=== PATIENT | male | born 1955 | race Asian ===

== ENCOUNTER 2017-10-07 03:26 | Inpatient (IN) | payer BC ==
[~2017-10-07] VITALS: Ht 172.7 cm; Wt 59.0 kg
[2017-10-07 04:26] LABS: Basophils # (auto) 0.1 uL; Eosinophils # (auto) 0.2 uL; Eosinophils % (auto) 4.1 % (0.0-7.0); Hematocrit 42.4 % (41.0-53.0); Hemoglobin 14.4 g/dL (13.5-17.5); Lymphocytes # (auto) 2.6 uL; Lymphocytes % (auto) 46.4 % (10.0-50.0); Mean Corpuscular Hemoglobin 30.3 pg (28.0-32.0); Mean Corpuscular Hgb Conc. 33.9 g/dL (32.0-36.0); Mean Corpuscular Volume 89.3 fL (80.0-100.0); Monocytes # (auto) 0.6 uL; Neutrophils # (auto) 2.1 uL; Neutrophils % (auto) 38.5 % (37.0-80.0); Platelet Count (auto) 245 10^3/uL (140-450); Red Blood Cells 4.75 10^6/uL (4.5-5.90); Red Cell Distribution Width 13.7 % (11.8-14.3); White Blood Cell 5.5 10^3/uL (4.4-10.8)
[2017-10-07 04:37] LABS: Alanine Aminotransferase 24 U/L (16-61); Albumin 3.8 g/dL (3.4-5.0); Alkaline Phosphatase 59 U/L (45-117); Anion Gap 8 (5-15); Aspartate Aminotransferase 17 U/L (15-37); BUN/Creatinine Ratio 18.2; Bilirubin, Total 0.4 mg/dL (0.2-1.0); Blood Urea Nitrogen 18 mg/dL (7-18); Calcium 8.6 mg/dL (8.5-10.1); Carbon Dioxide 25 mmol/L (21-32); Chloride 108 mmol/L (98-107); GFR African American 99 mL/min; GFR Non-African American 82 mL/min; Glucose 135 mg/dL (74-106); Potassium 3.4 mmol/L (3.5-5.1); Sodium 141 mmol/L (136-145); Total Protein 7.5 g/dL (6.4-8.2)
[2017-10-07] MEDS ORDERED: LORazepam 0.5 MG TAB PO PRN (08:15)
[2017-10-07] MEDS ORDERED: HYDROcodone-ACET 5/325MG TAB PO PRN (08:15)
[2017-10-07] MEDS ORDERED: NITROGLYCERIN 0.4 MG SL TAB SL PRN (08:15)
[2017-10-07] MEDS ORDERED: MORPHINE SULFATE 8mg/ml INJ SDV IV PRN ×2 (08:15)
[2017-10-07] MEDS ORDERED: PROMETHAZINE HCL 25 MG/ML 1ML IV PRN (08:15)
[2017-10-07] MEDS ORDERED: TEMAZEPAM 15 MG CAP PO PRN (08:15)
[2017-10-07] MEDS ORDERED: LACTULOSE 20Gm/30ML SOLN PO PRN (08:15)
[2017-10-07] MEDS ORDERED: ACETAMINOPHEN 500 MG TAB PO PRN (08:15)
[2017-10-07] MEDS ORDERED: ALBUTEROL SULF 2.5 MG/0.5ML(0.5%) NEB SOLN NEB PRN (08:15)
[2017-10-07] MEDS ORDERED: DOXYCYCLINE HYC 100MG/250ML 250 ML IV SCH (08:15)
[2017-10-07 09:12] LABS: Folate (Folic Acid) 15.04 ng/mL (5.38-24)
[2017-10-07 09:34] LABS: Alcohol, Urine < 3.0 mg/dL (0-5); Amphetamine Screen, Urine NEGATIVE (NEGATIVE); Barbiturate Scree,Urine NEGATIVE (NEGATIVE); Benzodiazephine Screen, Urine NEGATIVE (NEGATIVE); Cannabinoid Screen, Urine NEGATIVE (NEGATIVE); Cocaine Screen, Urine NEGATIVE (NEGATIVE); Opiate Scree,Urine NEGATIVE (NEGATIVE); Phencyclidine Screen, Urine NEGATIVE (NEGATIVE)
[2017-10-07] MEDS: SODIUM CHLORIDE 0.9% 1,000 ML IV SCH ×2 (09:38→20:43)
[2017-10-07] MEDS: ENOXAPARIN SOD 40 MG/0.4 ML SYRINGE SC SCH (09:55)
[2017-10-07] MEDS: ASPirin 81 mg TAB PO SCH (09:55)
[2017-10-07 10:15] LABS: Urine Bacteria NONE SEEN /hpf (None Seen); Urine Blood Negative /uL (Negative); Urine Hyaline Cast FEW /lpf (0 - 2); Urine Specific Gravity 1.014 (1.001-1.035); Urine WBC 1 /hpf (0 - 3)
[2017-10-07] MEDS ORDERED: POTASSIUM CHL 20 Meq TABLET PO ONE (10:30)
[2017-10-07] MEDS: ALBUTEROL SULF 2.5 MG/0.5ML(0.5%) NEB SOLN NEB SCH ×2 (13:20→19:51)
[2017-10-07] MEDS ORDERED: MULTTAB99 PO (16:45)
[2017-10-07] MEDS ORDERED: CALC667C PO (16:45)
[2017-10-07] MEDS ORDERED: LOVA40TA72 PO (16:45)
[2017-10-07] MEDS ORDERED: CHOL20007 PO (16:45)
[2017-10-07 16:47] VITALS: BP_SYST 133; BP_SYST 145; BP_DIAS 70; BP_DIAS 72
[2017-10-07] MEDS ORDERED: GENTAMICIN OPTH sol 0.3% 5ml RIGHTEYE ONE (19:30)
[2017-10-07 20:30] VITALS: BP 142/82
[2017-10-07 21:33] VITALS: BP 142/82
[2017-10-07] MEDS: GENTAMICIN OPTH sol 0.3% 5ml RIGHTEYE SCH (21:45)
[2017-10-08] MEDS: ALBUTEROL SULF 2.5 MG/0.5ML(0.5%) NEB SOLN NEB SCH ×3 (01:02→11:09)
[2017-10-08] MEDS: GENTAMICIN OPTH sol 0.3% 5ml RIGHTEYE SCH ×3 (02:25→10:34)
[2017-10-08 03:08] VITALS: BP 142/82
[2017-10-08 04:58] VITALS: BP 123/73
[2017-10-08 06:07] LABS: Cholesterol 166 mg/dL (< 200); HDL Cholesterol 46 mg/dL (40-59); LDL Cholesterol 103 mg/dL (< 100); Triglycerides 161 mg/dL (< 150)
[2017-10-08 08:00] VITALS: BP 125/77
[2017-10-08] MEDS: ENOXAPARIN SOD 40 MG/0.4 ML SYRINGE SC SCH (10:34)
[2017-10-08] MEDS: ASPirin 81 mg TAB PO SCH (10:34)
[2017-10-08 13:00] VITALS: BP 141/88
[2017-10-08 15:41] VITALS: BP 141/88
== END 2017-10-08 16:15 | disposition home or self-care (01) | DRG 948 ==
LOC: ER 03:26 → TELE 03:27 → TELE-WESTW 14:07
PROVIDERS: ADMIT Internal Medicine; ATTEND Internal Medicine
DX: R53.1 Weakness (principal); B34.9 Viral infection, unspecified; E78.00 Pure hypercholesterolemia, unspecified; E78.5 Hyperlipidemia, unspecified; E87.6 Hypokalemia; K59.00 Constipation, unspecified; F41.9 Anxiety disorder, unspecified; G47.00 Insomnia, unspecified; R06.02 Shortness of breath; G47.10 Hypersomnia, unspecified; R00.1 Bradycardia, unspecified; Z87.891 Personal history of nicotine dependence; Z82.3 Family history of stroke; Z79.899 Other long term (current) drug therapy
CPT/HCPCS: 36415; 71045; 80053; 80061; 80307; 81001; 82550; 82607; 82746; 83880; 84443; 84484; 85025; 85379; 85652; 86141; 87804; 87807; 93005; 93306; 94640; 96360; J3490

== ENCOUNTER 2019-06-17 23:41 | Emergency (ER) | payer BC ==
[~2019-06-17] VITALS: Ht 180.3 cm; Wt 68.0 kg
[~2019-06-17 23:41] MED LIST: CALC667C PO; CHOL20007 PO; LOVA40TA72 PO; MULTTAB99 PO
[2019-06-17 23:58] LABS: Basophils # (auto) 0 uL; Basophils % (auto) 0.8 % (0.0-2.0); Eosinophils # (auto) 0.1 uL; Eosinophils % (auto) 2.3 % (0.0-7.0); Hematocrit 41.3 % (41.0-53.0); Hemoglobin 14.1 g/dL (13.5-17.5); Lymphocytes # (auto) 2.4 uL; Lymphocytes % (auto) 44.5 % (10.0-50.0); Mean Corpuscular Hemoglobin 30.5 pg (28.0-32.0); Mean Corpuscular Hgb Conc. 34.1 g/dL (32.0-36.0); Mean Corpuscular Volume 89.4 fL (80.0-100.0); Monocytes # (auto) 0.5 uL; Monocytes % (auto) 9.1 % (0.0-12.0); Neutrophils # (auto) 2.3 uL; Neutrophils % (auto) 43.3 % (37.0-80.0); Nucleated Red Blood Cells % 0.1 %; Platelet Count (auto) 287 10^3/uL (140-450); Red Blood Cells 4.62 10^6/uL (4.5-5.90); Red Cell Distribution Width 13.4 % (11.8-14.3); White Blood Cell 5.4 10^3/uL (4.4-10.8)
[2019-06-18 00:15] LABS: Albumin 3.7 g/dL (3.4-5.0); BUN/Creatinine Ratio 23.9; Calcium 8.6 mg/dL (8.5-10.1); Potassium 3.4 mmol/L (3.5-5.1)
[2019-06-18 00:18] LABS: Acetaminophen < 2.0 ug/mL (10-30); Salicylate < 1.7 mg/dL (2.8-20.0)
[2019-06-18 00:22] LABS: Bilirubin, Total 0.3 mg/dL (0.2-1.0); Total Protein 7.2 g/dL (6.4-8.2)
[2019-06-18 03:46] VITALS: BP 122/75
== END 2019-06-18 04:07 | disposition home or self-care (01) ==
LOC: ER 23:42
DX: T50.901A Poisoning by unspecified drugs, medicaments and biological substances, accidental (unintentional), initial encounter (principal); E86.0 Dehydration; E78.5 Hyperlipidemia, unspecified; F17.210 Nicotine dependence, cigarettes, uncomplicated; Y92.89 Other specified places as the place of occurrence of the external cause
CPT/HCPCS: 36415; 80053; 80329; 85025; 93005

== ENCOUNTER 2020-03-22 22:55 | Emergency (ER) | payer BC ==
[~2020-03-22] VITALS: Ht 177.8 cm; Wt 63.5 kg
[2020-03-23 01:39] LABS: Basophils # (auto) 0 10 ^3/uL (0-0.2); Basophils % (auto) 0.8 % (0.0-2.0); Eosinophils # (auto) 0.1 10 ^3/uL (0-0.8); Eosinophils % (auto) 2.5 % (0.0-7.0); Hematocrit 43.4 % (41.0-53.0); Hemoglobin 14.4 g/dL (13.5-17.5); Lymphocytes # (auto) 1.7 10 ^3/uL (0.4-5.4); Lymphocytes % (auto) 32.8 % (10.0-50.0); Mean Corpuscular Hemoglobin 29.9 pg (28.0-32.0); Mean Corpuscular Hgb Conc. 33.3 g/dL (32.0-36.0); Mean Corpuscular Volume 89.9 fL (80.0-100.0); Monocytes # (auto) 0.4 10 ^3/uL (0-1.3); Monocytes % (auto) 8.2 % (0.0-12.0); Neutrophils # (auto) 2.9 10 ^3/uL (1.6-8.6); Neutrophils % (auto) 55.7 % (37.0-80.0); Nucleated Red Blood Cells % 0.1 %; Platelet Count (auto) 338 10^3/uL (140-450); Red Blood Cells 4.83 10^6/uL (4.5-5.90); Red Cell Distribution Width 13.7 % (11.8-14.3); White Blood Cell 5.3 10^3/uL (4.4-10.8)
[2020-03-23 02:06] LABS: Albumin 3.9 g/dL (3.4-5.0); Anion Gap 6 (5-15); BUN/Creatinine Ratio 22.4; Blood Urea Nitrogen 19 mg/dL (7-18); Calcium 8.9 mg/dL (8.5-10.1); Carbon Dioxide 30 mmol/L (21-32); Chloride 103 mmol/L (98-107); GFR African American 117 mL/min; GFR Non-African American 97 mL/min; Glucose 98 mg/dL (74-106); Potassium 3.5 mmol/L (3.5-5.1); Sodium 139 mmol/L (136-145)
[2020-03-23 02:10] LABS: Alanine Aminotransferase 35 U/L (16-61); Alkaline Phosphatase 57 U/L (45-117); Aspartate Aminotransferase 23 U/L (15-37); Bilirubin, Total 0.4 mg/dL (0.2-1.0); Total Protein 7.6 g/dL (6.4-8.2)
[2020-03-23 07:40] LABS: Amphetamine Screen, Urine NEGATIVE (NEGATIVE); Barbiturate Scree,Urine NEGATIVE (NEGATIVE); Benzodiazephine Screen, Urine NEGATIVE (NEGATIVE); Cannabinoid Screen, Urine NEGATIVE (NEGATIVE); Cocaine Screen, Urine NEGATIVE (NEGATIVE); Opiate Scree,Urine NEGATIVE (NEGATIVE); Phencyclidine Screen, Urine NEGATIVE (NEGATIVE)
[2020-03-23 11:02] VITALS: BP 135/92
== END 2020-03-23 11:18 | disposition home or self-care (01) ==
LOC: ER 22:56
DX: F41.8 Other specified anxiety disorders (principal); Z20.828 Contact with and (suspected) exposure to other viral communicable diseases
CPT/HCPCS: 36415; 71045; 80053; 80307; 83880; 84484; 85025; 87426; 93005; 99285; C9803; U0003

== ENCOUNTER 2024-12-10 10:46 | Inpatient (IN) | payer BC, MEDICARE ==
[~2024-12-10] VITALS: Ht 172.7 cm; Wt 60.1 kg
--- NOTE | 2024-12-10 11:18 | ED.PDOC ---
HPI (NEURO) HPI Comments 69 y.o male accompanied by son, presents to the ED for a chief complaint of dizziness associated with nausea x 1 day. Patient reports dizziness presents only with movement such as getting up from a supine or candelaria's position, lasting a couple seconds before subsiding on its own. Dizziness is described as the room spinning with no near syncopal or fainting episodes. Patient was seen at [facility] today, had a UA test done and stroke assessment to r/u CVA, which came back normal/negative but was sent to the ED for further evaluation. Patient denies any vomiting, headaches, head injuries, focal deficits, weakness, numbness sensation, change of speech/vision, SOB, or chest pain. Patient is alert and oriented x 4 with no abnormal behavior observed recently per son. Patient has a medical history of HLD. No substance, alcohol or tobacco use reported. Time Seen by MD: 11:08 Reviewed Notes: Nurses Notes, Medications, Allergies Information Source: Patient, Relative Mode of Arrival: Ambulatory Severity: Moderate Dizziness/Weakness Severity: Does not affect activitie Headache Severity: None Timing: Days (1) Duration: Intermittent Onset: Other (with movement ) Circumstances: Spontaneous Symptoms: None History of: None Associated Signs and Symptoms: None Past Medical History PAST MEDICAL HISTORY: High Lipids Surgical History (Other): hemorroidectomy Family History Family History: Reviewed,noncontributory to illness Social History Smoker: Non-Smoker Alcohol: Denies ETOH Use Drugs: Denies Drug Use Lives In: Home Constitutional: denies: chills, diaphoresis, fatigue, fever, malaise, sweats, weakness, others EENTM: denies: blurred vision, double vision, ear bleeding, ear discharge, ear drainage, ear pain, ear ringing, eye pain, eye redness, hearing loss, mouth pain, mouth swelling, nasal discharge, nose bleeding, nose congestion, nose pain, photophobia, tearing, throat pain, throat swelling, voice changes, others Respiratory: denies: cough, hemoptysis, orthopnea, SOB at rest, shortness of breath, SOB with excertion, stridor, wheezing, others Cardiovascular: denies: chest pain, dizzy spells, diaphoresis, Dyspnea on exertion, edema, irregular heart beat, left arm pain, lightheadedness, palpitations, PND, syncope, others Gastrointestinal: reports: nausea; denies: abdomen distended, abdominal pain, blood streaked bowels, constipated, diarrhea, dysphagia, difficulty swallowing, hematemesis, melena, poor appetite, poor fluid intake, rectal bleeding, rectal pain, vomiting, others Genitourinary: denies: burning, dysuria, flank pain, frequency, hematuria, incontinence, penile discharge, penile sore, pain, testicle pain, testicle swelling, urgency, others Neurological: reports: dizziness; denies: fainting, headache, left sided numbness, left sided weakness, numbness, paresthesia, pre-existing deficit, right sided numbness, right sided weakness, seizure, speech problems, tingling, tremors, weakness, others Musculoskeletal: denies: back pain, gout, joint pain, joint swelling, muscle pain, muscle stiffness, neck pain, others Integumetry: denies: bruises, change in color, change in hair/nails, dryness, laceration, lesions, lumps, rash, wounds, others Allergic/Immunocompromised: denies: Difficulty Healing, Frequent Infections, Hives, Itching, others Hematologic/Lymphatic: denies: anemia, blood clots, easy bleeding, easy bruising, swollen glands, others Endocrine: denies: excessive hunger, excessive sweating, excessive thirst, excessive urination, flushing, intolerance to cold, intolerance to heat, unexplained weight gain, unexplained weight loss, others Psychiatric: denies: anxiety, bipolar disorder, depression, hopeless, panic disorder, schizophrenia, sleepless, suicidal, others All Other Systems: Reviewed and Negative Physical Exam General Appearance: Mild Distress HEENT: Normal ENT Inspection, Pharynx Normal, TMs Normal Neck: Full Range of Motion, Non-Tender, Normal, Normal Inspection Respiratory: Chest Non-Tender, Lungs Clear, No Accessory Muscle Use, No Respiratory Distress, Normal Breath Sounds Cardiovascular: No Edema, No JVD, No Murmur, No Gallop, Normal Peripheral Pulses, Regular Rate/Rhythm Breast Exam: Deferred Gastrointestinal: No Organomegaly, Non Tender, No Pulsatile Mass, Normal Bowel Sounds, Soft Genitalia: Deferred Pelvic: Deferred Rectal: Deferred Extremities: No calf tenderness, Normal capillary refill, No pedal edema Musculoskeletal : Apperance: Normal Neurologic: Alert, crab butcher II-XII nml as Tested, Motor Weakness, Normal Affect, Normal Mood, No Sensory Deficits Cerebellar Function: Ataxia Reflexes: Normal Skin: Dry, Normal Color, Warm Lymphatic: No Adenopathy EKG EKG : Pulse Rate (adult): 57 Cardiac Rhythm: NSR Hypertrophy: APPLE Was a procedure done? Was a procedure done?: No Differential Diagnosis (SZ) Seizure: N/A General Weakness: Dehydration, Electrolyte imbalance, Labyrinthitis, Vertigo: central, Vertigo: peripheral, Vestibular neuronitis X-Ray, Labs, Meds, VS Vital Signs Date Time Temp Pulse Resp B/P (MAP) Pulse Ox O2 Delivery O2 Flow Rate FiO2 12/10/24 12:40 57 12/10/24 12:01 98.8 61 17 132/68 (89) 98 98.8 12/10/24 12:01 61 17 98 Room Air 12/10/24 11:20 57 12/10/24 11:15 97.7 59 16 157/75 (102) 98 97.7 Lab Test 12/10/24 11:29 12/10/24 11:18 12/10/24 11:15 Range/Units White Blood Count 5.7 4.4-10.8 10^3/uL Red Blood Count 5.03 4.5-5.90 10^6/uL Hemoglobin 15.1 13.5-17.5 g/dL Hematocrit 44.0 41.0-53.0 % Mean Corpuscular Volume 87.3 80.0-100.0 fL Mean Corpuscular Hemoglobin 30.0 28.0-32.0 pg Mean Corpuscular Hemoglobin Concent 34.3 32.0-36.0 g/dL Red Cell Distribution Width 14.1 11.8-14.3 % Platelet Count 299 140-450 10^3/uL Mean Platelet Volume 7.9 6.9-10.8 fL Neutrophils (%) (Auto) 60.0 37.0-80.0 % Lymphocytes (%) (Auto) 28.6 10.0-50.0 % Monocytes (%) (Auto) 9.1 0.0-12.0 % Eosinophils (%) (Auto) 1.7 0.0-7.0 % Basophils (%) (Auto) 0.6 0.0-2.0 % Neutrophils # (Auto) 3.4 1.6-8.6 10 ^3/uL Lymphocytes # (Auto) 1.6 0.4-5.4 10 ^3/uL Monocytes # (Auto) 0.5 0-1.3 10 ^3/uL Eosinophils # (Auto) 0.1 0-0.8 10 ^3/uL Basophils # (Auto) 0 0-0.2 10 ^3/uL Nucleated Red Blood Cells 0.0 % Sodium Level 139 136-145 mmol/L Potassium Level 4.3 3.5-5.1 mmol/L Chloride Level 104 98-107 mmol/L Carbon Dioxide Level 29 20-31 mmol/L Anion Gap 6 5-15 Blood Urea Nitrogen 14 9-23 mg/dL Creatinine 0.98 0.700-1.30 mg/dL Glomerular Filtration Rate Calc 85 >90 mL/min BUN/Creatinine Ratio 14.3 10.0-20.0 Serum Glucose 92 74-106 mg/dL Calcium Level 10.1 8.7-10.4 mg/dL POC Glucose 96 70-106 mg/dl Urine Color Yellow Yellow Urine Clarity Clear Clear Urine pH 6.5 5.0-9.0 Urine Specific [place] 1.024 1.001-1.035 Urine Protein Negative Negative Urine Ketones Negative Negative Urine Blood Negative Negative /uL Urine Nitrite Negative Negative Urine Bilirubin Negative Negative Urine Urobilinogen Normal Negative mg/dL Urine Leukocyte Esterase Negative Negative /uL Urine RBC 1 0 - 3 /hpf Urine Microscopic WBC 0-3 /HPF Urine Squamous Epithelial Cells None seen <5 /hpf Urine Bacteria None seen None Seen /hpf Urine Glucose Normal Normal mg/dL CT HEAD WITHOUT CONTRAST IMPRESSION: No intracranial hemorrhage or mass effect. The patient's urine test is negative for infection The CBC and chemistry panel are within normal limits We did contact Dr. Stapleton was the neurologist on-call The patient is being admitted to the hospitalist The patient understands and agrees with the management Images Reviewed?: Images reviewed and evaluated by me Time of 1ST Reevaluation: 12:30 Reevaluation 1ST: Unchanged Patient Education/Counseling: Diagnosis, Treatment, Prognosis Family Education/Counseling: Diagnosis, Treatment, Prognosis Departure 1 Departure Time of Disposition: 14:25 Impression: Primary Impression: Autonomic dysfunction Additional Impression: Dizziness Disposition: 09 ADMITTED INPATIENT Admit to: [facility] Condition: Fair Critical Care Note Critical Care Time?: Yes (45 min-critical care time only) Stability Stability form required: Yes Unstable for transfer: Telemetry monitoring (Telemetry monitoring required), ED Physician Assesment (Clinical assesment) Heart Score Heart Score: Heart Score Response (Comments) Value History N/A 0 EKG N/A 0 Age N/A 0 Risk Factors N/A 0 Troponin N/A 0 Total 0 I personally scribed for MICAH NARVAEZ MD ([email or web address]) on 12/10/24 at 11:18. Electronically submitted by Viky Stoddard ([facility]). I personally scribed for MICAH NARVAEZ MD ([email or web address]) on 12/10/24 at 12:04. Electronically submitted by Viky Stoddard ([facility] I personally scribed for MICAH NARVAEZ MD ([email or web address]) on 12/10/24 at 12:40. Electronically submitted by Viky Stoddard ([facility]). MICAH NARVAEZ MD Dec 10, 2024 11:18
--- NOTE | 2024-12-10 11:22 | ECG ---
[facility] Test Date: 2024-12-10 Test Time: 11:20:14 Pat Name: LESLY TAVAREZ Department: ER Room: 0287T Gender: M [employer]: GP : [id number] Requested By: MICAH NARVAEZ Order Number: [id number] Reading MD: Renato Castellon Measurements Intervals [place] Rate: 57 P: 95 VT: 173 QRS: 85 QRSD: 87 T: 59 QT: 448 QTc: 437 Interpretive Statements Sinus rhythm Right atrial enlargement Borderline right axis deviation Borderline ST elevation, anterior leads Electronically Signed On 12-14-2024 9:42:08 PDT by Renato Castellon Please click the below link to view image of tracing.
[2024-12-10 11:53] LABS: Hematocrit 44.0 % (41.0-53.0); Hemoglobin 15.1 g/dL (13.5-17.5); Mean Corpuscular Hemoglobin 30.0 pg (28.0-32.0); Mean Corpuscular Volume 87.3 fL (80.0-100.0); Nucleated Red Blood Cells % 0.0 %
--- NOTE | 2024-12-10 11:55 | DVH ---
CT HEAD WITHOUT CONTRAST Indication: dizziness EXAM DATE: 12/10/2024 11:29 AM COMPARISON: None TECHNIQUE: CT of the head without intravenous contrast. RADIATION DOSE: CTDIvol: 53.5 mGy, DLP: 966 mGy*cm FINDINGS: There is no intracranial hemorrhage. There is no extra-axial fluid, mass, mass effect or midline shif t. The ventricles are midline and normal in size. Basilar cisterns are patent. Stoddard-white differentia tion is maintained. Mild global cerebral volume loss. The mastoids are well pneumatized. Sphenoid sinus disease.. Imaged portion of the orbits are unremark able. IMPRESSION: No intracranial hemorrhage or mass effect.
[2024-12-10 12:03] LABS: Chloride 104 mmol/L (98-107); Potassium 4.3 mmol/L (3.5-5.1); Sodium 139 mmol/L (136-145)
[2024-12-10 12:04] LABS: Anion Gap 6 (5-15); Calcium 10.1 mg/dL (8.7-10.4); Carbon Dioxide 29 mmol/L (20-31)
[2024-12-10 12:09] LABS: BUN/Creatinine Ratio 14.3 (10.0-20.0); Blood Urea Nitrogen 14 mg/dL (9-23); Glucose 92 mg/dL (74-106)
[2024-12-10 12:21] LABS: Urine Protein, UAD Negative (Negative)
[2024-12-10] MEDS ORDERED: ACETAMINOPHEN 325 MG TAB PO PRN (17:00)
[2024-12-10] MEDS ORDERED: ONDANSETRON HCL 4 MG/2 ML VIAL IV PRN (17:00)
[2024-12-10] MEDS ORDERED: NITROGLYCERIN 0.4 MG SL TAB SL PRN (17:00)
[2024-12-10] MEDS ORDERED: HYDROcodone-ACET 5/325MG TAB PO PRN (17:00)
[2024-12-10] MEDS ORDERED: MORPHINE SULFATE INJ 2 MG/ml SYRG IV PRN (17:00)
--- NOTE | 2024-12-10 17:04 | DVHHP2 ---
History of Present Illness Reason for Visit: Dizziness History of Present Illness John Salas is a 69-year-old male with past medical history of hyperlipidemia, who comes to the hospital with complaints of dizziness. Patient states his dizziness began yesterday, and is mostly when he changes positions from sitting or laying to standing. He states he becomes dizzy and it feels like he could have a syncopal episode. He states it usually improves after about 15- 20 seconds. Cardiovascular: hyperipidemia Past Surgical History: Other (Hemorrhoidectomy) Smoke: No ALCOHOL: none Drugs: None Lives: with Family Domestic Violence: Neg Review of Systems Constitutional: No: Fever, Chills, Sweats, Weakness, Malaise, Other Eyes: No: Pain, Vision change, Conjunctivae inflammation, Eyelid inflammation, Other, Redness ENT: No: Ear pain, Ear discharge, Nose pain, Nose discharge, Nose congestion, Mouth pain, Mouth swelling, Throat pain, Throat swelling, Other Respiratory: No: Cough, Dry, Shortness of breath, SOB with excertion, Wheezing, Hemoptysis, Pleuritic Pain, Sputum, Wheezing, Other Cardiovascular: No: Chest Pain, Palpitations, Orthopnea, Paroxysmal Noc. Dyspnea, Edema, Lt Headedness, Other Gastrointestinal: No: Nausea, Vomiting, Abdominal Pain, Diarrhea, Constipation, Melena, Hematochezia, Other Genitourinary: No Dysuria, No Frequency, No Incontinence, No Hematuria, No Retention, No Other Musculoskeletal: No: other, neck pain, shoulder pain, arm pain, back pain, hand pain, leg pain, foot pain Skin: No: Rash, Lesions, Jaundice, Bruising, Other Neurological: Incoordination, Other (Dizziness); No: Weakness, Numbness, Change in speech, Confusion, Seizures Allergies: Coded Allergies: NO KNOWN ALLERGIES (Unverified , 10/07/17) Exam Vital Signs Vital Signs Date Time Temp Pulse Resp B/P (MAP) Pulse Ox O2 Delivery O2 Flow Rate FiO2 12/10/24 12:40 57 12/10/24 12:01 98.8 17 132/68 (89) 98 98.8 12/10/24 12:01 Room Air General Appearance: Alert, Oriented X3, Cooperative, mild distress HEENT: Atraumatic, PERRLA Respiratory: Clear to auscultation, Normal air movement Cardiovascular: Normal S1, Normal S2, No murmurs, Other (SB) Abdominal: Normal bowel sounds, Soft, No tenderness Extremities: No clubbing, No cyanosis, No edema, Normal pulses Skin: No rashes, No breakdown, No significant lesion Neuro: Normal gait, Normal speech, Strength at 5/5 X4 ext, Normal tone Psych/Mental Status: Mental status NL, Mood NL Labs/Xrays Labs Test 12/10/24 11:29 12/10/24 11:18 12/10/24 11:15 Range/Units White Blood Count 5.7 4.4-10.8 10^3/uL Red Blood Count 5.03 4.5-5.90 10^6/uL Hemoglobin 15.1 13.5-17.5 g/dL Hematocrit 44.0 41.0-53.0 % Mean Corpuscular Volume 87.3 80.0-100.0 fL Mean Corpuscular Hemoglobin 30.0 28.0-32.0 pg Mean Corpuscular Hemoglobin Concent 34.3 32.0-36.0 g/dL Red Cell Distribution Width 14.1 11.8-14.3 % Platelet Count 299 140-450 10^3/uL Mean Platelet Volume 7.9 6.9-10.8 fL Neutrophils (%) (Auto) 60.0 37.0-80.0 % Lymphocytes (%) (Auto) 28.6 10.0-50.0 % Monocytes (%) (Auto) 9.1 0.0-12.0 % Eosinophils (%) (Auto) 1.7 0.0-7.0 % Basophils (%) (Auto) 0.6 0.0-2.0 % Neutrophils # (Auto) 3.4 1.6-8.6 10 ^3/uL Lymphocytes # (Auto) 1.6 0.4-5.4 10 ^3/uL Monocytes # (Auto) 0.5 0-1.3 10 ^3/uL Eosinophils # (Auto) 0.1 0-0.8 10 ^3/uL Basophils # (Auto) 0 0-0.2 10 ^3/uL Nucleated Red Blood Cells 0.0 % Sodium Level 139 136-145 mmol/L Potassium Level 4.3 3.5-5.1 mmol/L Chloride Level 104 98-107 mmol/L Carbon Dioxide Level 29 20-31 mmol/L Anion Gap 6 5-15 Blood Urea Nitrogen 14 9-23 mg/dL Creatinine 0.98 0.700-1.30 mg/dL Glomerular Filtration Rate Calc 85 >90 mL/min BUN/Creatinine Ratio 14.3 10.0-20.0 Serum Glucose 92 74-106 mg/dL Calcium Level 10.1 8.7-10.4 mg/dL POC Glucose 96 70-106 mg/dl Urine Color Yellow Yellow Urine Clarity Clear Clear Urine pH 6.5 5.0-9.0 Urine Specific [place] 1.024 1.001-1.035 Urine Protein Negative Negative Urine Ketones Negative Negative Urine Blood Negative Negative /uL Urine Nitrite Negative Negative Urine Bilirubin Negative Negative Urine Urobilinogen Normal Negative mg/dL Urine Leukocyte Esterase Negative Negative /uL Urine RBC 1 0 - 3 /hpf Urine Microscopic WBC 0-3 /HPF Urine Squamous Epithelial Cells None seen <5 /hpf Urine Bacteria None seen None Seen /hpf Urine Glucose Normal Normal mg/dL CT HEAD WITHOUT CONTRAST FINDINGS: There is no intracranial hemorrhage. There is no extra-axial fluid, mass, mass effect or midline shift. The ventricles are midline and normal in size. Basilar cisterns are patent. Stoddard-white differentiation is maintained. Mild global cerebral volume loss. The mastoids are well pneumatized. Sphenoid sinus disease.. Imaged portion of the orbits are unremarkable. IMPRESSION: No intracranial hemorrhage or mass effect. Assessment/Plan Assessment/Plan Assessment: Autonomic dysfunction, Hyperlipidemia, Plan: Admit to Tele, Orthostatic VS, IV hydration, Consider neurology consult if symptoms persist, Carotid duplex, Plan discussed with: Patient My Orders Orders - CHYNA CASTILLO Procedure Category Date Status Time Admit ADMIT 12/10/24 Transmitted 16:48 Code Status CODE 12/10/24 Transmitted 16:48 2 Gm Sodium Diet DIET 12/10/24 Transmitted Dinner Hydrocodone-Acet PHA 12/10/24 Transmitted 5/325mg Tab ([place] 17:00 Ondansetron Hcl PHA 12/10/24 Transmitted (Zofran) 17:00 Complete Blood Count LAB 12/11/24 Verified 04:00 Comprehensive LAB 12/11/24 Verified Metabolic Panel 04:00 Condition: Serious CELIA 12/10/24 Transmitted 16:48 Acetaminophen Tablet PHA 12/10/24 Transmitted (Tylenol Tablet) 17:00 Nitroglycerin PHA 12/10/24 Transmitted Sublingual (Ntrostat 17:00 Morphine Sulfate PHA 12/10/24 Transmitted Injection 17:00 Stat Ekg For Chest CELIA 12/10/24 Transmitted Pain 16:48 Notify Md Of Changes CELIA 12/10/24 Transmitted From Base 16:48 Pot Room Tapper For CELIA 12/10/24 Transmitted 24 Hours 16:48 Emergency Dysrhythmia CELIA 12/10/24 Transmitted Protocol 16:48 Rhythm Strips Once CELIA 12/10/24 Transmitted Every Shift 16:48 Oxygen By Nasal RT 12/10/24 Transmitted Cannula 16:48 Orthostatic Vital ORDERS 12/10/24 Transmitted Signs 16:48 Multiple Vitamin PHA 12/11/24 Transmitted Tablet (Mvi Tab) 10:00 (Nf) Lovastatin PHA 12/11/24 Transmitted 10:00 Date of Service: Dec 10, 2024 Billing Provider: CHYNA CASTILLO Common Visit Codes: [id number] INP/OBS CARE (MOD) CHYNA CASTILLO Dec 10, 2024 17:03
--- NOTE | 2024-12-10 18:10 | DVH ---
Indication: dizziness. near syncope Technique: Real-time ultrasound images of the neck vessels with veans-scale, color and wave Doppler we re obtained. Comparison: None Findings: There is mild atherosclerotic plaque. The following peak systolic velocities were recorded in cm/sec: Right internal carotid: 102 Right common carotid: 76 Right external carotid: 51 Right internal/common carotid ratio: 1.4 Left internal carotid: 92 Left common carotid: 72 Left external carotid: 65 Left internal/common carotid ratio: 1.3 Right vertebral artery: Patent with normal antegrade direction of flow. Left vertebral artery: Patent with normal antegrade direction of flow. Impression: No hemodynamically significant stenosis by velocity criteria.
[2024-12-10 18:18] VITALS: BP 135/63; PULSE 55; PULSE 62; RESP 19; RESP 22; TEMP 98.1; O2SAT 99
--- NOTE | 2024-12-10 19:22 | DVHINCON2 ---
Date of service: Dec 10, [address] Infante History of Present Illness Mr. Salas is a 69 years old right-handed gentleman with a history of dyslipidemia, the patient came to the hospital on 12/10/2024 with a chief complaint of dizziness, nausea x one day. The patient is a times alert and oriented 4, he provided following history I saw him on 10/07/2017 four weakness On 12/09/2024, after laying on his back fixing his car, he said up and had a intense dizziness/spinning sensation/unsteadiness and nausea, he hold onto objects for support, and the event lasts for sec of time, and when he was trying to get up, he had another similar event. In the morning on 12/10/24, he noticed similar events can be triggered by bending or reason the head, and he decided to bring himself to medical attention. Otherwise he denies headache, focal weakness numbness. He has a similar events about three years ago He noticed his symptoms resolved after he came to the emergency room Otherwise he denies recent chills, fever, nausea, vomiting, coughing, head trauma, fall CBC, 12/10/2024: Unremarkable BMP 12/10/2024: Unremarkable TG/HDL/LDL/HDL, : 161/166/103/46 Carotid Doppler, 12/10/2024: No hemodynamically significant stenosis by velocity criteria CT head, 12/10/2024: No intracranial hemorrhage or mass effect Past Medical History Dyslipidemia Past Surgical History Hemorrhoidectomy, sinus surgery Family History: Hypercholesterolemia G8 MOTHER Hypertension G8 FATHER Family History Hypertension, dyslipidemia, stroke Social History He was a tobacco smoker, but no history of alcohol recreational substance abuse Allergies: Coded Allergies: NO KNOWN ALLERGIES (Unverified , 10/07/17) Home Meds Reported Medications Calcium Acetate (Phosphate Bin (Calcium Acetate) 667 Mg Cap, PO DAILY for 30 Days, MG 10/07/17 Cholecalciferol (VITAMIN D3) 2,000 Unit Tab, 500 PO DAILY, TAB 10/07/17 Multiple Vitamin (Mvi Tab) 1 Tab Tb, 1 TAB PO DAILY 10/07/17 Lovastatin (Lovastatin) 40 Mg Tab, 1 TAB PO DAILY, #30 TAB 5 Refills 10/07/17 Current Medications Current Medications Medications (Trade) Dose Ordered Sig/Blaine Route PRN Reason Start Time Stop Time Status Last Admin Acetaminophen/ Hydrocodone Bitart ([place] 5/325MG Tab) 1 tab Q4HP PRN PO MODERATE PAIN (4-6 PAIN SCALE) 12/10/24 17:00 Ondansetron HCl (Zofran) 4 mg Q4HP PRN IV NAUSEA / VOMITING 12/10/24 17:00 Acetaminophen (Tylenol Tablet) 650 mg Q6HP PRN PO PAIN SCALE 1-3 OR TEMP>100.4 12/10/24 17:00 Nitroglycerin (Ntrostat Sublingual) 0.4 mg Q5MINP PRN SL FOR CHEST PAIN 12/10/24 17:00 Morphine Sulfate 2 mg Q30M PRN IV FOR CHEST PAIN 12/10/24 17:00 Multivitamins (Mvi Tab) 1 tab DAILY PO 12/11/24 10:00 Pravastatin Sodium (Pravachol Tablet) 40 mg HS PO 12/10/24 22:00 Review of Systems As above, the other system are negative Vital Signs Vital Signs Date Time Temp Pulse Resp B/P (MAP) Pulse Ox O2 Delivery O2 Flow Rate FiO2 12/10/24 18:18 98.1 62 22 135/63 (87) 99 98.1 12/10/24 12:01 Room Air Physical Exam GENERAL EXAM: General: the patient is well developed and nourished. No acute distress. HEENT: Normocephalic, neck is supple, no carotid bruits. No mass. RESPIRATORY: Normal respiratory effort with symmetrical lung expansion. Lungs clear to auscultation. CARDIOVASCULAR: Regular rate and rhythm with no murmurs. S1, S2. ABDOMEN: Soft, nontender, normal bowel sound NEUROLOGICAL: MENTAL STATUS: Awake and alert. Oriented to person, place, time and general circumstances. Able to give personal history. SPEECH, LANGUAGE, HIGHER CORTICAL FUNCTION: no aphasia or dysathria. CRANIAL NERVES: #2: Intact visual ryan to confrontation. The optic discs were sharp. #3,4,6: Pupils are equal, round and reactive. EOMs full and conjugate. Mild bilateral gaze evoked nystagmus. #5: Facial sensation intact in all three divisions bilaterally. Mandibular strength intact. #7: Facial muscles symmetrical and strength intact. #8: Hearing grossly normal to voice. #9,10: Uvula and soft palate rise in the midline. Swallow and voice are normal. #11: Trapezius and sternomastoid strength intact bilaterally. #12: Tongue midline. No fasciculations or atrophy. SENSATION: Sensation to touch and pinprick is normal. MOTOR: Normal tone in the upper and lower extremity. Normal muscle bulk. No muscle tenderness. No fasciculations. No abnormal movements or posturing. Muscle strength of the major groups in the extremities is 5/5. REFLEXES: Deep tendon reflexes normal and symmetrical, 1-2/4 in the ankle. No pathological reflexes. CEREBELLAR/COORDINATION: Finger to nose and heel to cisneros are normal bilaterally. GAIT/STATION: With normal limits Labs/Diagnostic Data Labs Test 12/10/24 11:29 12/10/24 11:18 12/10/24 11:15 Range/Units White Blood Count 5.7 4.4-10.8 10^3/uL Red Blood Count 5.03 4.5-5.90 10^6/uL Hemoglobin 15.1 13.5-17.5 g/dL Hematocrit 44.0 41.0-53.0 % Mean Corpuscular Volume 87.3 80.0-100.0 fL Mean Corpuscular Hemoglobin 30.0 28.0-32.0 pg Mean Corpuscular Hemoglobin Concent 34.3 32.0-36.0 g/dL Red Cell Distribution Width 14.1 11.8-14.3 % Platelet Count 299 140-450 10^3/uL Mean Platelet Volume 7.9 6.9-10.8 fL Neutrophils (%) (Auto) 60.0 37.0-80.0 % Lymphocytes (%) (Auto) 28.6 10.0-50.0 % Monocytes (%) (Auto) 9.1 0.0-12.0 % Eosinophils (%) (Auto) 1.7 0.0-7.0 % Basophils (%) (Auto) 0.6 0.0-2.0 % Neutrophils # (Auto) 3.4 1.6-8.6 10 ^3/uL Lymphocytes # (Auto) 1.6 0.4-5.4 10 ^3/uL Monocytes # (Auto) 0.5 0-1.3 10 ^3/uL Eosinophils # (Auto) 0.1 0-0.8 10 ^3/uL Basophils # (Auto) 0 0-0.2 10 ^3/uL Nucleated Red Blood Cells 0.0 % Sodium Level 139 136-145 mmol/L Potassium Level 4.3 3.5-5.1 mmol/L Chloride Level 104 98-107 mmol/L Carbon Dioxide Level 29 20-31 mmol/L Anion Gap 6 5-15 Blood Urea Nitrogen 14 9-23 mg/dL Creatinine 0.98 0.700-1.30 mg/dL Glomerular Filtration Rate Calc 85 >90 mL/min BUN/Creatinine Ratio 14.3 10.0-20.0 Serum Glucose 92 74-106 mg/dL Calcium Level 10.1 8.7-10.4 mg/dL POC Glucose 96 70-106 mg/dl Urine Color Yellow Yellow Urine Clarity Clear Clear Urine pH 6.5 5.0-9.0 Urine Specific [place] 1.024 1.001-1.035 Urine Protein Negative Negative Urine Ketones Negative Negative Urine Blood Negative Negative /uL Urine Nitrite Negative Negative Urine Bilirubin Negative Negative Urine Urobilinogen Normal Negative mg/dL Urine Leukocyte Esterase Negative Negative /uL Urine RBC 1 0 - 3 /hpf Urine Microscopic WBC 0-3 /HPF Urine Squamous Epithelial Cells None seen <5 /hpf Urine Bacteria None seen None Seen /hpf Urine Glucose Normal Normal mg/dL Assessment Dizziness/vertigo Benign paroxysmal positional vertigo Rule out central nervous disorder/TIA, less likely Plan/Recommendation Monitoring Supportive treatment Telemetry MR head More recommendation per clinical course I have spent time discussing with him I have discussed with his nurse The case was discussed with Dr. Infante Plan discussed with: Patient, Other JEROME KEITH MD Dec 10, 2024 19:22
[2024-12-10] MEDS ORDERED: LORazepam 2MG/ML-1ML VIAL IV PRN (20:00)
[2024-12-10] MEDS ORDERED: PRAVASTATIN SODIUM 20 MG TAB PO SCH (22:00)
[2024-12-11] VITALS (8 sets, daily range): BP systolic 125–164; BP diastolic 61–84; PULSE 18–93; RESP 16–20; TEMP 96.9–99.1; O2SAT 96–99
[2024-12-11] MEDS ORDERED: ACETAMINOPHEN 325 MG TAB PO PRN (01:30)
[2024-12-11] MEDS ORDERED: HYDROcodone-ACET 5/325MG TAB PO PRN (01:30)
[2024-12-11] MEDS ORDERED: ONDANSETRON HCL 4 MG/2 ML VIAL IV PRN (01:30)
[2024-12-11] MEDS ORDERED: NITROGLYCERIN 0.4 MG SL TAB SL PRN (01:30)
[2024-12-11] MEDS ORDERED: MORPHINE SULFATE INJ 2 MG/ml SYRG IV PRN (01:30)
[2024-12-11] MEDS: PRAVASTATIN SODIUM 20 MG TAB PO SCH (02:09)
[2024-12-11 05:53] LABS: Hematocrit 43.4 % (41.0-53.0); Hemoglobin 15.3 g/dL (13.5-17.5); Mean Corpuscular Hemoglobin 30.5 pg (28.0-32.0); Mean Corpuscular Volume 86.7 fL (80.0-100.0); Nucleated Red Blood Cells % 0.1 %
[2024-12-11 06:36] LABS: Alanine Aminotransferase 20 U/L (7-40); Alkaline Phosphatase 48 U/L (46-116); BUN/Creatinine Ratio 15.9 (10.0-20.0); Blood Urea Nitrogen 14 mg/dL (9-23); Calcium 9.3 mg/dL (8.7-10.4); Chloride 106 mmol/L (98-107); Glucose 89 mg/dL (74-106); Potassium 4.0 mmol/L (3.5-5.1); Sodium 140 mmol/L (136-145); Total Protein 7.1 g/dL (5.7-8.2)
[2024-12-11 06:37] LABS: Albumin 4.3 g/dL (3.2-4.8)
[2024-12-11 06:38] LABS: Bilirubin, Total 0.6 mg/dL (0.2-1.0)
[2024-12-11 06:54] LABS: Anion Gap 10 (5-15); Carbon Dioxide 24 mmol/L (20-31)
--- NOTE | 2024-12-11 09:03 | DVH ---
EXAMINATION: MRI BRAIN HEAD WO CONTRAST INDICATION: TIA COMPARISON: CT head dated 12/10/24 TECHNIQUE: Multiplanar, multisequence magnetic resonance imaging of the brain was performed without the use of i ntravenous contrast. FINDINGS: No evidence of acute infarct. No intracranial hemorrhage. No mass effect. There is minimal periventricular/deep white matter T2/FLAIR hyperintensity is nonspecific, but most c ommonly associated with chronic microvascular disease. The ventricles and sulci are normal in size for age. Clear basal cisterns. Flow voids in the major intracranial vessels are maintained. No abnormality of the orbits. Mucous retention cysts in the left maxillary sinus. Mastoid air cells are well aerated. No abnormality of the visualized osseous structures and extracranial soft tissues. IMPRESSION: 1. No acute infarct, intracranial hemorrhage, mass effect, or hydrocephalus. 2. Mild white matter disease, nonspecific but most commonly associated with sequelae of chronic micro vascular ischemic changes although other etiologies are not excluded
[2024-12-11] MEDS: MULTIPLE VITAMIN TAB PO SCH (09:52)
[2024-12-11] MEDS ORDERED: MULTIPLE VITAMIN TAB PO SCH (10:00)
--- NOTE | 2024-12-11 12:33 | DVHPN2 ---
Reviewed: Care Plan, H&P, Labs, Medications, Previous Orders, Radiology Changes from previous H/P or p: No Changes Eyes: No Pain, No Vision change, No Conjunctivae inflammation, No Eyelid inflammation, No Other, No Redness ENT: No Ear pain, No Ear discharge, No Nose pain, No Nose discharge, No Nose congestion, No Mouth pain, No Mouth swelling, No Throat pain, No Throat swelling, No Other Cardiovascular: No Chest Pain, No Palpitations, No Orthopnea, No Paroxysmal Noc. Dyspnea, No Edema, No Lt Headedness, No Other Respiratory: No Cough, No Dry, No Shortness of breath, No SOB with excertion, No Wheezing, No Hemoptysis, No Pleuritic Pain, No Sputum, No Other Gastrointestinal: No Nausea, No Vomiting, No Abdominal Pain, No Diarrhea, No Constipation, No Melena, No Hematochezia, No Other Genitourinary: No Dysuria, No Frequency, No Incontinence, No Hematuria, No Retention, No Other Musculoskeletal: No other, No neck pain, No shoulder pain, No arm pain, No back pain, No hand pain, No leg pain, No foot pain Skin: No Rash, No Lesions, No Jaundice, No Bruising, No Other Objective Vitals Vital Signs Date Time Temp Pulse Resp B/P (MAP) Pulse Ox O2 Delivery O2 Flow Rate FiO2 12/11/24 09:00 97.8 54 18 134/73 (93) 98 97.8 12/11/24 08:00 Room Air* 0 21 Intake/Output Intake and Output 12/11/24 07:00 Intake Total 0 ml Balance 0 ml Intake Oral 0 ml Medications Current Medications Medications Dose Ordered Sig/Blaine Route Start Time Stop Time Status Last Admin Dose Admin Lorazepam 1 mg ONCE PRN IV 12/10/24 20:00 Acetaminophen 650 mg Q6HP PRN PO 12/11/24 01:30 Acetaminophen/ Hydrocodone Bitart 1 tab Q4HP PRN PO 12/11/24 01:30 Morphine Sulfate 2 mg Q30M PRN IV 12/11/24 01:30 Multivitamins 1 tab DAILY PO 12/11/24 10:00 12/11/24 09:52 1 TAB Nitroglycerin 0.4 mg Q5MINP PRN SL 12/11/24 01:30 Ondansetron HCl 4 mg Q4HP PRN IV 12/11/24 01:30 Pravastatin Sodium 40 mg HS PO 12/10/24 22:00 12/11/24 02:09 40 MG Laboratory Results Laboratory Tests 12/11/24 05:18 Chemistry Test 12/11/24 05:18 Albumin 4.3 g/dL (3.2-4.8) Calcium Level 9.3 mg/dL (8.7-10.4) Total Protein 7.1 g/dL (5.7-8.2) LFT Test 12/11/24 05:18 Alanine Aminotransferase (ALT) 20 U/L (7-40) Alkaline Phosphatase 48 U/L (46-116) Aspartate Amino Transferase (AST) 21 U/L (13-40) Total Bilirubin 0.6 mg/dL (0.2-1.0) Urinalysis Test 12/10/24 11:15 Urine Color Yellow (Yellow) Urine Clarity Clear (Clear) Urine pH 6.5 (5.0-9.0) Urine Specific [place] 1.024 (1.001-1.035) Urine Protein Negative (Negative) Urine Ketones Negative (Negative) Urine Blood Negative /uL (Negative) Urine Nitrite Negative (Negative) Urine Bilirubin Negative (Negative) Urine Urobilinogen Normal mg/dL (Negative) Urine Leukocyte Esterase Negative /uL (Negative) Urine RBC 1 /hpf (0 - 3) Urine Microscopic WBC /HPF (0-3) Urine Squamous Epithelial Cells None seen /hpf (<5) Urine Bacteria None seen /hpf (None Seen) Urine Glucose Normal mg/dL (Normal) Labs and/or images reviewed: Labs reviewed by me, Image(s) reviewed by me Assessment/Plan Assessment/Plan Dizziness Benign paroxysmal positional vertigo: Neurology consult appreciated Ruled out TIA Carotid ultrasound negative CT head negative MRI brain neg Plan discussed with: Patient Date of Service: Dec 11, 2024 Billing Provider: KRISHAN RANDALL MD Common Visit Codes: [id number] INP/OBS CARE(HIGH) KRISHAN RANDALL MD Dec 11, 2024 12:33
--- NOTE | 2024-12-11 15:55 | DVHPN2 ---
Progress Note - Dictate Date Seen: Dec 11, 2024 Medical Necessity Reason Pt with a Central, PICC or Fol: No Subjective Mr. Salas is a 69 years old right-handed gentleman with a history of dyslipidemia, the patient came to the hospital on 12/10/2024 with a chief complaint of dizziness, nausea x one day. I saw him on 10/07/2017 for weakness I have seen and examined the patient, talked to his nurse, he is doing fine, no new complaints CBC, 12/10/2024: Unremarkable BMP 12/10/2024: Unremarkable TG/HDL/LDL/HDL, 09/201918: 161/166/103/46 Carotid Doppler, 12/10/2024: No hemodynamically significant stenosis by velocity criteria CT head, 12/10/2024: No intracranial hemorrhage or mass effect MRI head, 12/11/2024: 1. No acute infarct, intracranial hemorrhage, mass effect, or hydrocephalus. 2. Mild white matter disease, nonspecific but most commonly associated with sequelae of chronic microvascular ischemic changes although other etiologies are not excluded vital signs Vital Sign Date Time Temp Pulse Resp B/P (MAP) Pulse Ox O2 Delivery O2 Flow Rate FiO2 12/11/24 13:00 96.9 52 18 147/80 (102) 98 96.9 12/11/24 08:00 Room Air* 0 21 Total Intake and Output 12/10/24 12/10/24 12/11/24 15:00 23:00 07:00 Intake Total 0 ml Balance 0 ml medications Current Medications Medications Dose Ordered Sig/Blaine Route Start Time Stop Time Status Last Admin Dose Admin Lorazepam 1 mg ONCE PRN IV 12/10/24 20:00 Acetaminophen 650 mg Q6HP PRN PO 12/11/24 01:30 Acetaminophen/ Hydrocodone Bitart 1 tab Q4HP PRN PO 12/11/24 01:30 Morphine Sulfate 2 mg Q30M PRN IV 12/11/24 01:30 Multivitamins 1 tab DAILY PO 12/11/24 10:00 12/11/24 09:52 1 TAB Nitroglycerin 0.4 mg Q5MINP PRN SL 12/11/24 01:30 Ondansetron HCl 4 mg Q4HP PRN IV 12/11/24 01:30 Pravastatin Sodium 40 mg HS PO 12/10/24 22:00 12/11/24 02:09 40 MG objective General: the patient is well developed and nourished. No acute distress. MENTAL STATUS: Awake and alert. Oriented to person, place, time and general circumstances. Able to give personal history. SPEECH, LANGUAGE, HIGHER CORTICAL FUNCTION: no aphasia or dysathria. CRANIAL NERVES: Pupils are equal, round and reactive. EOMs full and conjugate. Mild bilateral gaze evoked nystagmus. Facial sensation intact in all three divisions bilaterally. Mandibular strength intact. Facial muscles symmetrical and strength intact. SENSATION: Sensation to touch and pinprick is normal. MOTOR: Normal tone in the upper and lower extremity. Normal muscle bulk. No muscle tenderness. No fasciculations. No abnormal movements or posturing. Muscle strength of the major groups in the extremities is 5/5. REFLEXES: Deep tendon reflexes normal and symmetrical, 1-2/4 in the ankle. No pathological reflexes. CEREBELLAR/COORDINATION: Finger to nose and heel to cisneros are normal bilaterally. GAIT/STATION: With normal limits laboratory and microbiology Laboratory Tests 12/11/24 05:18 Test 12/11/24 05:18 Range/Units Serum Glucose 89 74-106 mg/dL Problem List Dizziness/vertigo Benign paroxysmal positional vertigo Rule out central nervous disorder/TIA, less likely Assessment/Plan Monitoring Supportive treatment Telemetry More recommendation per clinical course This medical document was created using an electronic medical record system with [employer] dictation system. Although this document has been carefully reviewed, there may still be some phonetic and typographical errors. These areas are purely typographical due to imperfections of the software programs, and do not reflect any compromise in the patient's medical care. Prognosis poor Plan discussed with: Patient, Other JEROME KEITH MD Dec 11, 2024 15:55
[2024-12-12 01:00] VITALS: BP 126/70; PULSE 57; RESP 16; TEMP 98.1; O2SAT 97
[2024-12-12 05:00] VITALS: BP_SYST 120; BP_SYST 153; BP_DIAS 69; BP_DIAS 87; PULSE 58; PULSE 90; RESP 14; RESP 20; TEMP 97.1; TEMP 98.1; O2SAT 97; O2SAT 98
[2024-12-12 08:00] VITALS: PULSE 68; RESP 18; O2SAT 97
[2024-12-12 09:00] VITALS: BP 129/70; PULSE 66; RESP 18; TEMP 97.9; O2SAT 97
--- NOTE | 2024-12-12 10:58 | DVHPN2 ---
Reviewed: Care Plan, H&P, Labs, Medications, Previous Orders, Radiology Changes from previous H/P or p: No Changes Eyes: No Pain, No Vision change, No Conjunctivae inflammation, No Eyelid inflammation, No Other, No Redness ENT: No Ear pain, No Ear discharge, No Nose pain, No Nose discharge, No Nose congestion, No Mouth pain, No Mouth swelling, No Throat pain, No Throat swelling, No Other Cardiovascular: No Chest Pain, No Palpitations, No Orthopnea, No Paroxysmal Noc. Dyspnea, No Edema, No Lt Headedness, No Other Respiratory: No Cough, No Dry, No Shortness of breath, No SOB with excertion, No Wheezing, No Hemoptysis, No Pleuritic Pain, No Sputum, No Other Gastrointestinal: No Nausea, No Vomiting, No Abdominal Pain, No Diarrhea, No Constipation, No Melena, No Hematochezia, No Other Genitourinary: No Dysuria, No Frequency, No Incontinence, No Hematuria, No Retention, No Other Musculoskeletal: No other, No neck pain, No shoulder pain, No arm pain, No back pain, No hand pain, No leg pain, No foot pain Skin: No Rash, No Lesions, No Jaundice, No Bruising, No Other Objective Vitals Vital Signs Date Time Temp Pulse Resp B/P (MAP) Pulse Ox O2 Delivery O2 Flow Rate FiO2 12/12/24 09:00 97.9 66 18 129/70 (89) 97 97.9 12/12/24 08:00 Room Air* 0 21 Intake/Output Intake and Output 12/12/24 07:00 Intake Total 1300 ml Balance 1300 ml Intake Oral 1300 ml # Voids 4 # Bowel Movements 1 Medications Current Medications Medications Dose Ordered Sig/Blaine Route Start Time Stop Time Status Last Admin Dose Admin Lorazepam 1 mg ONCE PRN IV 12/10/24 20:00 Acetaminophen 650 mg Q6HP PRN PO 12/11/24 01:30 Acetaminophen/ Hydrocodone Bitart 1 tab Q4HP PRN PO 12/11/24 01:30 Morphine Sulfate 2 mg Q30M PRN IV 12/11/24 01:30 Multivitamins 1 tab DAILY PO 12/11/24 10:00 12/12/24 09:24 1 TAB Nitroglycerin 0.4 mg Q5MINP PRN SL 12/11/24 01:30 Ondansetron HCl 4 mg Q4HP PRN IV 12/11/24 01:30 Pravastatin Sodium 40 mg HS PO 12/10/24 22:00 12/11/24 22:17 40 MG Laboratory Results Laboratory Tests 12/11/24 05:18 Urinalysis Test 12/10/24 11:15 Urine Color Yellow (Yellow) Urine Clarity Clear (Clear) Urine pH 6.5 (5.0-9.0) Urine Specific [place] 1.024 (1.001-1.035) Urine Protein Negative (Negative) Urine Ketones Negative (Negative) Urine Blood Negative /uL (Negative) Urine Nitrite Negative (Negative) Urine Bilirubin Negative (Negative) Urine Urobilinogen Normal mg/dL (Negative) Urine Leukocyte Esterase Negative /uL (Negative) Urine RBC 1 /hpf (0 - 3) Urine Microscopic WBC /HPF (0-3) Urine Squamous Epithelial Cells None seen /hpf (<5) Urine Bacteria None seen /hpf (None Seen) Urine Glucose Normal mg/dL (Normal) Labs and/or images reviewed: Labs reviewed by me, Image(s) reviewed by me Assessment/Plan Assessment/Plan Dizziness Benign paroxysmal positional vertigo: Neurology consult appreciated Ruled out TIA Carotid ultrasound negative CT head negative MRI brain neg Feels better and wants to go home The son is at the bedside Plan discussed with: Patient Date of Service: Dec 12, 2024 Billing Provider: KRISHAN RANDALL MD Common Visit Codes: [id number] INP/OBS CARE(HIGH) KRISHAN RANDALL MD Dec 12, 2024 10:58
[2024-12-12] MEDS ORDERED: MECL25CH85 PO (10:59)
--- NOTE | 2024-12-12 11:02 | DVHDS2 ---
Discharge Summary Date of Admission Dec 10, 2024 at 16:48 Date of Discharge: Dec 12, 2024 Admitting Diagnosis Dizziness Wounds: None Labs/Diagnostic Data: Laboratory Results Test 12/11/24 05:18 12/10/24 11:18 12/10/24 11:15 White Blood Count 7.2 10^3/uL (4.4-10.8) Red Blood Count 5.01 10^6/uL (4.5-5.90) Hemoglobin 15.3 g/dL (13.5-17.5) Hematocrit 43.4 % (41.0-53.0) Mean Corpuscular Volume 86.7 fL (80.0-100.0) Mean Corpuscular Hemoglobin 30.5 pg (28.0-32.0) Mean Corpuscular Hemoglobin Concent 35.2 g/dL (32.0-36.0) Red Cell Distribution Width 13.7 % (11.8-14.3) Platelet Count 284 10^3/uL (140-450) Mean Platelet Volume 8.3 fL (6.9-10.8) Neutrophils (%) (Auto) 64.6 % (37.0-80.0) Lymphocytes (%) (Auto) 24.7 % (10.0-50.0) Monocytes (%) (Auto) 8.1 % (0.0-12.0) Eosinophils (%) (Auto) 1.9 % (0.0-7.0) Basophils (%) (Auto) 0.7 % (0.0-2.0) Neutrophils # (Auto) 4.6 10 ^3/uL (1.6-8.6) Lymphocytes # (Auto) 1.8 10 ^3/uL (0.4-5.4) Monocytes # (Auto) 0.6 10 ^3/uL (0-1.3) Eosinophils # (Auto) 0.1 10 ^3/uL (0-0.8) Basophils # (Auto) 0.1 10 ^3/uL (0-0.2) Nucleated Red Blood Cells 0.1 % Sodium Level 140 mmol/L (136-145) Potassium Level 4.0 mmol/L (3.5-5.1) Chloride Level 106 mmol/L (98-107) Carbon Dioxide Level 24 mmol/L (20-31) Anion Gap 10 (5-15) Blood Urea Nitrogen 14 mg/dL (9-23) Creatinine 0.88 mg/dL (0.700-1.30) Glomerular Filtration Rate Calc 94 mL/min (>90) BUN/Creatinine Ratio 15.9 (10.0-20.0) Serum Glucose 89 mg/dL (74-106) Calcium Level 9.3 mg/dL (8.7-10.4) Total Bilirubin 0.6 mg/dL (0.2-1.0) Aspartate Amino Transferase (AST) 21 U/L (13-40) Alanine Aminotransferase (ALT) 20 U/L (7-40) Alkaline Phosphatase 48 U/L (46-116) Total Protein 7.1 g/dL (5.7-8.2) Albumin 4.3 g/dL (3.2-4.8) POC Glucose 96 mg/dl (70-106) Urine Color Yellow (Yellow) Urine Clarity Clear (Clear) Urine pH 6.5 (5.0-9.0) Urine Specific [place] 1.024 (1.001-1.035) Urine Protein Negative (Negative) Urine Ketones Negative (Negative) Urine Blood Negative /uL (Negative) Urine Nitrite Negative (Negative) Urine Bilirubin Negative (Negative) Urine Urobilinogen Normal mg/dL (Negative) Urine Leukocyte Esterase Negative /uL (Negative) Urine RBC 1 /hpf (0 - 3) Urine Microscopic WBC /HPF (0-3) Urine Squamous Epithelial Cells None seen /hpf (<5) Urine Bacteria None seen /hpf (None Seen) Urine Glucose Normal mg/dL (Normal) Other Laboratory Tests 12/11/24 05:18 Brief Hx & Hospital Course: 69-year-old male with no previous medical history came for dizziness. Labs normal CT head negative MRI brain negative carotid ultrasound negative seen by Neurology Dr. Stapleton patient feels better and wants to go home discharged home on Antivert. All workup negative. Son at the bedside and he is the pinner printed circuit boards. Consults/Reason for consult Neurology Dr. Stapleton Operations or Procedures CT head MRI brain Carotid ultrasound Condition at Discharge: Fair Final Diagnosis/Problems List Dizziness Benign paroxysmal positional vertigo: Neurology consult appreciated Ruled out TIA Carotid ultrasound negative CT head negative MRI brain neg Discharge Disposition: Home Discharge Instruct/Medications Diet: Regular Activity: No Restrictions, As Tolerated Follow Up/Referral: Follow up with the primary Dr Medications: Antivert Transmitted to pharmacy [facility] Scheduled Calcium Acetate (Phosphate Bin (Calcium Acetate), Unknown Dose PO DAILY, (Reported) Cholecalciferol (Vitamin D3), 500 PO DAILY, (Reported) Lovastatin (Lovastatin), 1 TAB PO DAILY, (Reported) Multiple Vitamin (Mvi Tab), 1 TAB PO DAILY, (Reported) Scheduled PRN Meclizine HCl (Antivert), 25 MG PO BID PRN 39 (Time taken for discharge summary 39 minutes) Discharge Statement: "Patient was advised to return to the ER or call 911 if any headaches, dizziness, shortness of breath, chest pain, abdominal pain, bleeding, fevers, or worsening of medical condition. Patient was counseled about treatment plan, medications, possible side effects, patientverbalized understanding. All questions were answered to the best of my ability. This discharge took greater then 30 minutes in planning, reviewing documentation, counseling the patient, and discussing with other team members." ASSESSMENT ASSESSMENT Hospital Course Improved Assessment Dizziness Benign paroxysmal positional vertigo: Neurology consult appreciated Ruled out TIA Carotid ultrasound negative CT head negative MRI brain neg Date of Service: Dec 12, 2024 Billing Provider: KRISHAN RANDALL MD Common Visit Codes: [id number] DISCH DAY >30min KRISHAN RANDALL MD Dec 12, 2024 11:02
[2024-12-12 12:21] VITALS: BP 124/73; PULSE 60; RESP 20; TEMP 97.8; O2SAT 98
== END 2024-12-12 12:00 | disposition home or self-care (01) | DRG 74 ==
LOC: ER 10:46 → OVERFLOW 16:48 → ER 16:52 → TELE-WESTW 23:18
PROVIDERS: ADMIT Family Medicine; ATTEND Family Medicine
DX: G90.89 Other disorders of autonomic nervous system (principal); H81.10 Benign paroxysmal vertigo, unspecified ear; F17.200 Nicotine dependence, unspecified, uncomplicated; E78.5 Hyperlipidemia, unspecified; Z82.49 Family history of ischemic heart disease and other diseases of the circulatory system; Z82.3 Family history of stroke; Z83.42 Family history of familial hypercholesterolemia
CPT/HCPCS: 36415; 70450; 70551; 80048; 80053; 81001; 82962; 85025; 93005; 93886; 99291; G0378